=== PATIENT | male | born 1990 | race Asian ===

== ENCOUNTER 2018-09-07 21:27 | Emergency (ER) | payer OTHER ==
[~2018-09-07] VITALS: Ht 175.3 cm; Wt 72.6 kg
[2018-09-07 22:03] VITALS: Ht 175.3 cm; Wt 72.6 kg
[2018-09-08 01:03] VITALS: BP 133/64
== END 2018-09-08 01:03 | disposition home or self-care (01) ==
LOC: ED 21:27
DX: S71.012A Laceration without foreign body, left hip, initial encounter (principal)
CPT/HCPCS: 90715; J2001

== ENCOUNTER 2018-09-17 12:53 | Emergency (ER) | payer OTHER ==
[~2018-09-17] VITALS: Ht 175.3 cm; Wt 72.1 kg
[2018-09-17 13:12] VITALS: Ht 175.3 cm; Wt 72.1 kg
[2018-09-17 15:45] VITALS: BP 118/71
== END 2018-09-17 15:45 | disposition home or self-care (01) ==
LOC: ED 12:53
DX: S71.011D Laceration without foreign body, right hip, subsequent encounter (principal); X58.XXXD Exposure to other specified factors, subsequent encounter